=== PATIENT | female | born 2000 | race Two or more races ===

== ENCOUNTER 2020-01-08 11:31 | Emergency (ER) | payer MEDICAID, OTHER ==
[~2020-01-08] VITALS: Ht 152.4 cm; Wt 68.0 kg
[2020-01-08 11:43] VITALS: BP 110/50
[2020-01-08 11:58] LABS: Basophils # (auto) 0 10 ^3/uL (0-0.2); Basophils % (auto) 0.3 % (0.0-2.0); Eosinophils # (auto) 0.2 10 ^3/uL (0-0.8); Eosinophils % (auto) 1.8 % (0.0-7.0); Hematocrit 39.4 % (36.0-46.0); Lymphocytes # (auto) 1.7 10 ^3/uL (0.4-5.4); Lymphocytes % (auto) 14.6 % (10.0-50.0); Mean Corpuscular Hemoglobin 30.2 pg (28.0-32.0); Mean Corpuscular Volume 91.6 fL (80.0-100.0); Monocytes # (auto) 0.8 10 ^3/uL (0-1.3); Monocytes % (auto) 7.1 % (0.0-12.0); Neutrophils # (auto) 8.9 10 ^3/uL (1.6-8.6); Neutrophils % (auto) 76.2 % (37.0-80.0); Platelet Count (auto) 411 10^3/uL (140-450); White Blood Cell 11.7 10^3/uL (4.4-10.8)
== END 2020-01-08 13:48 | disposition home or self-care (01) ==
LOC: ER 11:31
DX: O20.0 Threatened abortion (principal); Z3A.01 Less than 8 weeks gestation of pregnancy
CPT/HCPCS: 36415; 76801; 84702; 85025